=== PATIENT | male | born 1985 | race Caucasian/White ===

== ENCOUNTER 2017-09-29 12:34 | Emergency (ER) | payer MEDICAID ==
[2017-09-29] MEDS ORDERED: IOHEXOL 350mgI/mL 150mL IV ONE (12:35)
[2017-09-29] MEDS ORDERED: NITROGLYCERIN OINT 2% 1 INCH PACKET TP STA (12:42)
[2017-09-29] MEDS ORDERED: NITROGLYCERIN OINT 2% 1 INCH PACKET TP ONE ×2 (12:46→12:47)
[2017-09-29 13:01] LABS: EOSINOPHILE ABSOLUTE 0.3 Th/cmm (0.1-0.4); MONOCYTE ABSOLUTE 0.2 Th/cmm (0.3-1.0)
[2017-09-29 13:05] LABS: % BASOPHILS 0.9 % (0.0-2.0); % EOSINOPHILS 5.1 % (0.0-5.0); % LYMPHOCYTES 22.1 % (20.0-50.0); % MONOCYTES 4.2 % (2.0-10.0); % NEUTROPHILS 67.7 % (40.0-80.0); BASOPHILE ABSOLUTE 0.1 Th/cumm (0-0.2); HEMATOCRIT 49.1 % (41.0-60); HEMOGLOBIN 16.9 gm/dL (12-16); LYMPHOCYTE ABSOLUTE 1.3 Th/cmm (1.5-3.0); MEAN CELL VOLUME 88.7 fl (80-99); MEAN CORPUSCULAR HEMOGLOBIN 30.5 pg (26.0-30.0); MEAN CORPUSCULAR HGB CONC 34.4 pg (28.0-36.0); MEAN PLATELET VOLUME 7.2 fl; PLATELET COUNT 266 Th/cmm (150-400); RED BLOOD COUNT 5.54 Mil/cmm (4.30-5.70); RED CELL DISTRIBUTION WIDTH 12.3 % (11.5-20.0); WHITE BLOOD COUNT 5.9 Th/cmm (4.8-10.8)
--- NOTE | 2017-09-29 13:09 | Diagnostic Imaging Report ---
Portable chest x-ray History: Pain Allowing for portable technique the heart size is normal. No focal pulmonary parenchymal processes. No hilar or mediastinal abnormalities. Impression: No acute abnormalities.
[2017-09-29 13:12] LABS: INR 0.95 (0.5-1.4); PROTHROMBIN TIME (TEST) 9.9 SECONDS (9.5-11.5)
[2017-09-29 13:17] LABS: ALB/GLOB RATIO 1.7 (1.0-1.8); ALBUMIN 4.5 gm/dL (4.2-5.5); ALKALINE PHOSPHATASE 74 U/L (34-104); ANION GAP 11.4 (7.0-16.0); BILIRUBIN,TOTAL 0.5 mg/dL (0.3-1.0); BUN - UREA NITROGEN 11 mg/dL (7-25); CALCIUM SERUM 9.4 mg/dL (8.6-10.3); CARBON DIOXIDE 25.6 mEq/L (21.0-31.0); CHLORIDE 101 mEq/L (98-107); CHOLESTEROL 226 mg/dL (<200); CREATININE - SERUM 0.9 mg/dL (0.7-1.3); CREATININE KINASE 86 U/L (30-223); GFR AFRICAN-AMERICAN > 60.0 ml/min (>90); GFR NON AFRICAN-AMERICAN > 60.0 ml/min; GLUCOSE 148 mg/dL (70-105); HDL -HIGH DENSITY LIPOPROTEIN 57 mg/dL (23-92); SGOT 22 U/L (13-39); SGPT/ALT 45 U/L (7-52); SODIUM SERUM 134 mEq/L (136-145); TOTAL PROTEIN,SERUM 7.2 gm/dL (6.0-8.3); TRIGLYCERIDES 237 mg/dL (<150)
[2017-09-29 13:21] LABS: DDIMER QUANT < 100 ng/mL (100-400)
--- NOTE | 2017-09-29 14:18 | Diagnostic Imaging Report ---
CT scan of the chest without intravenous contrast HISTORY: Shortness of breath Total DLP equals 269 CTDI equals 6.2 Axial sections were obtained from a level above the clavicles down to level below the diaphragm. Evaluation of the vascular and hilar structures limited due to the absence of intravenous contrast. The heart size is normal. No abnormal mediastinal masses. No definite abnormal hilar masses. No focal pulmonary parenchymal processes. No abnormal masses or nodules. No pleural fluid is seen. IMPRESSION: Negative examination
--- NOTE | 2017-09-29 15:06 | ED Physician Chart ---
ED Chief Complaint/HPI - Patient Information Date Seen:: 09/29/17 Time Seen:: 12:45 Chief Complaint:: Chest Pain History of Present Illness:: onset x 3 days of intermittent, dull, localized, MS type right sided chest pain lasting 1 to 3 minutes with intermittent dyspnea and anxiousness; pt denies trauma, H/As, E/As, S/T, neck pain, cough, abd. pain, A/N/V/D/C, fever, chills, or urinary s/s Allergies:: Allergies Allergy/AdvReac Type Severity Reaction Status Date / Time aspirin Allergy Verified 09/29/17 12:48 Vitals:: Vital Signs - 8 hr 09/29/17 09/29/17 09/29/17 12:48 12:52 12:55 Temp 98.3 F 98.3 F HR 106 108 108 RR 20 22 BP 127/96 118/89 137/92 O2 Sat % 98 Historian:: Patient Review:: Nurse's Note Reviewed ED Review of Systems - Review of Systems General/Constitutional: No fever, No chills, No weight loss, No weakness, No diaphoresis, No edema, No loss of appetite Skin: No skin lesions, No rash, No bruising Head: No headache, No light-headedness Eyes: No loss of vision, No pain, No diplopia ENT: No earache, No nasal drainage, No sore throat, No tinnitus Neck: No neck pain, No swelling, No thyromegaly, No stiffness, No mass noted Cardio Vascular: Chest pain, No palpitations, No PND, No orthopnea, No edema Pulmonary: SOB, No cough, No sputum, No wheezing GI: No nausea, No vomiting, No diarrhea, No pain, No melena, No hematochezia, No constipation, No hematemesis G/U: No dysuria, No frequency, No hematuria, No nacturia Musculoskeletal: No bone or joint pain, No back pain, No muscle pain Endocrine: No polyuria, No polydipsia Psychiatric: No prior psych history, No depression, No anxiety, No suicidal ideation, No homicidal ideation, No auditory hallucination, No visual hallucination Hematopoietic: No bruising, No lymphadenopathy Allergic/Immuno: No urticaria, No angioedema Neurological: No syncope, No focal symptoms, No weakness, No paresthesia, No headache, No seizure, No dizziness, No confusion, No vertigo ED Past Medical History - Past Medical History Obtainable: Yes Past Medical History: No significant medical hx Family History: HTN Social History: Non Smoker, No Alcohol, No Drug Use, Single, Employed Surgical History: None Psychiatricy History: None Medication: Reviewed Family Medical History - Family Member Father Living Status: Still Living Hx Family Hypertension: Yes ED Physical Exam - Physical Examination General/Constitutional: Awake, Well-developed, well-nourished, Alert, No distress, GCS 15, Non-toxic appearing, Ambulatory Head: Atraumatic Eyes: Lids, conjuctiva normal, PERRL, EOMI Skin: Nl inspection, No rash, No skin lesions, No ecchymosis, Well hydrated, No lymphadenopathy ENMT: External ears, nose nl, TM canals nl, Nasal exam nl, Lips, teeth, gums nl , Oropharynx nl, Tonsils nl Neck: Nontender, Full ROM w/o pain, No JVD, No nuchal rigidity, No bruit, No mass, No stridor Other Neck comments:: supple; no meningeal signs; no cervical tenderness; no bruits Respiratory: Nl effort/Exclusion, Clear to Auscultation, No Wheeze/Rhonchi/Rales Cardio Vascular: RRR, No murmur, gallop, rubs, NL S1 S2, Carotid/Femoral/Distal pulses equal bilaterally Other Cardio Vascular comments:: + Right Anterior Chest Wall Tenderness which re-produces pt's subjective Chest Pain GI: No tenderness/rebounding/guarding, No organomegaly, No hernia, Normal BS's, Nondistended, No mass/bruits, No McBurney tenderness, Rectum exam nl Other GI comments:: no pulsatile masses; good Bowel Sounds : No CVA tenderness Extremities: No tenderness or effusion, Full ROM, normal strength in all extremities, No edema, Normal digits & nails Neuro/Psych: Alert/oriented, DTR's symmetric, Normal sensory exam, Normal motor strength, Judgement/insight normal, Mood normal, Normal gait, No focal deficits Misc: Normal back, No paraspinal tenderness ED Labs/Radiology/EKG Results - Lab Results Results: Laboratory Tests 09/29/17 09/29/17 09/29/17 12:52 12:52 12:52 WBC 5.9 RBC 5.54 Hgb 16.9 Hct 49.1 MCV 88.7 MCH 30.5 H MCHC Differential 34.4 RDW 12.3 Plt Count 266 MPV 7.2 Neutrophils % 67.7 Lymphocytes % 22.1 Monocytes % 4.2 Eosinophils % 5.1 H Basophils % 0.9 PT 9.9 INR 0.95 D-Dimer < 100 L Sodium 134 L Potassium 4.0 Chloride 101 Carbon Dioxide 25.6 Anion Gap 11.4 BUN 11 Creatinine 0.9 Est GFR ( Amer) > 60.0 Est GFR (Non-Af Amer) > 60.0 BUN/Creatinine Ratio 12.2 Glucose 148 H Calcium 9.4 Total Bilirubin 0.5 AST 22 ALT 45 Alkaline Phosphatase 74 Creatine Kinase 86 Troponin I B-Natriuretic Peptide Total Protein 7.2 Albumin 4.5 Globulin 2.7 Albumin/Globulin Ratio 1.7 Triglycerides 237 H Cholesterol 226 H LDL Cholesterol Direct 129 HDL Cholesterol 57 09/29/17 09/29/17 12:52 12:52 WBC RBC Hgb Hct MCV MCH MCHC Differential RDW Plt Count MPV Neutrophils % Lymphocytes % Monocytes % Eosinophils % Basophils % PT INR D-Dimer Sodium Potassium Chloride Carbon Dioxide Anion Gap BUN Creatinine Est GFR ( Amer) Est GFR (Non-Af Amer) BUN/Creatinine Ratio Glucose Calcium Total Bilirubin AST ALT Alkaline Phosphatase Creatine Kinase Troponin I < 0.01 L B-Natriuretic Peptide < 5.0 L Total Protein Albumin Globulin Albumin/Globulin Ratio Triglycerides Cholesterol LDL Cholesterol Direct HDL Cholesterol Comments:: Reviewed - Radiology Results Comments:: NAD - EKG Interpretations EKG Time:: 12:43 Rate & Rhythm: 103; ST Comments:: non-specific st-t changes ED Septic Shock - . Is Septic Shock (SBP<90, OR Lactate>4 mmol\L) present?: No - <6hrs of presentation: Vital Signs: Vital Signs - 8 hr 09/29/17 09/29/17 09/29/17 12:48 12:52 12:55 Temp 98.3 F 98.3 F HR 106 108 108 RR 20 22 BP 127/96 118/89 137/92 O2 Sat % 98 ED Reassessment (Disposition) - Reassessment Reassessment:: pt chose to sign out AMA; pt is asymptomatic upon discharge - Diagnosis Diagnosis:: Chest Pain-resolved; HTN; Chest Wall Pain; Angina Pectoris; Dyspnea; Costochondritis; Anxiety Reaction - Aftercare/Follow up Instructions Aftercare/Follow-Up Instructions:: Counseled pt regarding lab results/diagnosis & need follow up, Refer to Discharge Instructions, Counseled pt & family regarding lab results/diagnosis & need follow up - Patient Disposition Discharge/Transfer:: Against Medical Advice Condition at Disposition:: Stable, Improved (X-Rays Instructions; RTER prn if existing s/s reoccur and/or get worse and/or any other new s/s occur; ACIs given for all above Dx; Refer to It Operations Specialist/Ict Systems Test Engineer/Bench Precision Assembler EREN; F/U with PMD Today or prn; RTER prn if concerned)
== END 2017-09-29 15:15 | disposition left against medical advice (07) ==
LOC: ER 12:34
DX: I20.9 Angina pectoris, unspecified (principal); I10 Essential (primary) hypertension; F41.1 Generalized anxiety disorder; M94.0 Chondrocostal junction syndrome [Tietze]; Z88.6 Allergy status to analgesic agent
CPT/HCPCS: 99285; 94760; 93005; 71045; 71250; 84484; 83880; 36415; 85379; 85025; 85610; 82550; 80053; 80061; Z7610